=== PATIENT | female | born 1985 | race African-American/Black ===

== ENCOUNTER 2017-02-26 15:21 | Emergency (ER) | payer OTHER ==
[~2017-02-26] VITALS: Ht 152.4 cm; Wt 106.8 kg
[~2017-02-26 15:21] MED LIST: ALBUTEROL0.83 MG/ML IH; AMOXICILLIN 50500 MG PO; CETIRIZINE; CITALOPRAM20 MG PO; DOXYCYCLINE 10100 MG PO; FEROSUL325 MG PO; FLAGYL 250250 MG/TAB PO; FLAGYL500 MG PO; FLEXERIL 1010 MG/TAB PO; LORTAB 5/500 501 TAB PO; MACROBID 1100 MG/CAP PO; MOTRIN 200200 MG/TAB PO; MOTRIN 800800 MG/TAB PO; MYCOLOG-II 10001 CRE TP; NO HOME MEDICATIONS; NORCO 325 MG-51 TAB PO; PEPCID 20MG TAB20 MG PO; PERCOCET 325 MG1 TA2 PO; PHENERGAN 25 TA25 MG PO; PREDNISONE10 MG PO; PRENATAL1 TA1 PO; PYRIDIUM200 M1 PO; TUSS PO; TYLENOL EXTRA500 M1 PO; TYLENOL W/COD1 UDTAB PO; ULTRAM 50MG TAB50 MG PO
[2017-02-26 15:23] VITALS: TEMP 98
[2017-02-26 16:00] LABS: BASO % 0.5 % (0.0-2.0); EOS # 0.1 (0.0-0.7); EOS % 2.5 % (0-4.0); GRAN # 2.8 (1.4-6.5); GRAN % 50.2 % (42.2-75.2); HEMATOCRIT 41.3 % (37.0-47.0); HEMOGLOBIN 13.2 g/dl (12.5-16.0); LYMPH # 2.2 (1.2-3.4); LYMPH % 39.6 % (20.0-51.0); MEAN CELL VOLUME 78 fl (80.0-100.0); MEAN CORPUSCULAR HEMOGLOBIN 25 pg (27.0-31.0); MEAN CORPUSCULAR HGB CONC 32 g/dl (33.0-37.0); MEAN PLATELET VOLUME 8.9 fl (7.4-10.4); MONO # 0.4 (0.1-0.6); PLATELET COUNT 307 K/mm3 (130-400); RED BLOOD COUNT 5.27 M/mm3 (4.10-5.30); REDCELL DISTRIBUTION WIDTH-CV 15.3 % (11.5-14.5); WHITE BLOOD COUNT 5.6 K/mm3 (4.8-10.8)
[2017-02-26 16:14] LABS: ADJUSTED CALCIUM 9.2 mg/dL (8.4-10.2); ALBUMIN 3.9 gm/dL (3.5-5.0); BILIRUBIN,TOTAL 0.6 mg/dL (0.0-1.0); CALCIUM 9.1 mg/dL (8.4-10.2); CREATININE, serum 0.85 mg/dL (0.52-1.25); POTASSIUM 3.6 mmol/L (3.4-5.0)
[2017-02-26 16:55] VITALS: BP 127/82; PULSE 77
== END 2017-02-26 16:57 | disposition home or self-care (01) ==
LOC: COL.ER 15:21
PROVIDERS: Emergency Medicine
DX: M25.562 Pain in left knee (principal)

== ENCOUNTER 2017-06-10 17:35 | Emergency (ER) | payer SELFPAY ==
[~2017-06-10] VITALS: Ht 149.9 cm; Wt 113.6 kg
[2017-06-10 17:40] VITALS: BP 123/77; TEMP 98.3
[2017-06-10 20:38] VITALS: PULSE 80
== END 2017-06-10 20:18 | disposition home or self-care (01) ==
LOC: COL.ER 17:35
DX: J06.9 Acute upper respiratory infection, unspecified (principal)

== ENCOUNTER 2017-07-11 15:03 | Emergency (ER) | payer OTHER ==
[~2017-07-11] VITALS: Ht 152.4 cm; Wt 113.6 kg
[2017-07-11 15:07] VITALS: BP 125/65; TEMP 98.1
[2017-07-11] MEDS ORDERED: PREDNISONE20 MG PO (17:14)
[2017-07-11] MEDS ORDERED: PROAIR HFA0.09 MG/AC IH (17:14)
[2017-07-11 18:40] VITALS: PULSE 94
== END 2017-07-11 18:41 | disposition home or self-care (01) ==
LOC: COL.ER 15:03
DX: J20.9 Acute bronchitis, unspecified (principal)
CPT/HCPCS: J7512

== ENCOUNTER 2018-01-09 20:26 | Emergency (ER) | payer OTHER ==
[~2018-01-09] VITALS: Ht 152.4 cm; Wt 115.5 kg
[~2018-01-09 20:26] MED LIST changes: +PREDNISONE20 MG PO; +PROAIR HFA0.09 MG/AC IH
[2018-01-09 20:30] VITALS: BP 136/62; TEMP 97.5
[2018-01-09] MEDS ORDERED: [UNRECOGNIZED DRUG - OTHER] (20:33)
[2018-01-09] MEDS ORDERED: B-121000 MCG PO (20:34)
[2018-01-09] MEDS ORDERED: AMOXICILLIN875 MG PO (20:59)
[2018-01-09 21:17] VITALS: PULSE 90
== END 2018-01-09 21:22 | disposition home or self-care (01) ==
LOC: COL.ER 20:26
DX: J32.9 Chronic sinusitis, unspecified (principal)

== ENCOUNTER 2018-06-19 07:07 | Emergency (ER) | payer OTHER ==
[~2018-06-19] VITALS: Ht 152.4 cm; Wt 117.3 kg
[~2018-06-19 07:07] MED LIST changes: +AMOXICILLIN875 MG PO; +B-121000 MCG PO; +[UNRECOGNIZED DRUG - OTHER]
[2018-06-19 07:14] VITALS: TEMP 99.1
[2018-06-19] MEDS ORDERED: FLAGYL500 MG PO (07:30)
[2018-06-19] MEDS ORDERED: LEVOXYL0.075 MG PO (07:30)
[2018-06-19 07:36] LABS: COLLECTION METHOD CLEAN CATCH
[2018-06-19 07:50] LABS: MUCOUS Present /lpf; PH 5 (5-8); URINE APPEARANCE Hazy; URINE BACTERIA Rare /hpf; URINE BILIRUBIN Negative (NEGATIVE); URINE BLOOD 3+ (NEGATIVE); URINE COLOR Yellow; URINE GLUCOSE Negative (NEGATIVE); URINE KETONE Negative (NEGATIVE); URINE LEUKOCYTE ESTERASE 2+ (NEGATIVE); URINE NITRATE Negative (NEGATIVE); URINE PROTEIN(semi-quant) 1+ (NEGATIVE); URINE RBC 20-50 /hpf; URINE UROBILINOGEN >=4.0 mg/dL (NEGATIVE)
[2018-06-19] MEDS ORDERED: CEPHALEXIN500 M1 PO (07:54)
[2018-06-19] MEDS ORDERED: PYRIDIUM200 M1 PO (07:54)
[2018-06-19 08:00] VITALS: BP 124/70; PULSE 70
== END 2018-06-19 08:01 | disposition home or self-care (01) ==
LOC: COL.ER 07:07
PROVIDERS: Physician Assistant
DX: N39.0 Urinary tract infection, site not specified (principal); E03.9 Hypothyroidism, unspecified; Z98.51 Tubal ligation status; Z98.890 Other specified postprocedural states

== ENCOUNTER 2018-08-15 07:07 | Emergency (ER) | payer OTHER ==
[~2018-08-15] VITALS: Ht 152.4 cm; Wt 120.5 kg
[~2018-08-15 07:07] MED LIST changes: +CEPHALEXIN500 M1 PO; +LEVOXYL0.075 MG PO
[2018-08-15 07:16] VITALS: BP 121/76
[2018-08-15] MEDS ORDERED: NATURAL IRON65 MG PO (07:25)
[2018-08-15 09:30] VITALS: PULSE 78; TEMP 99.2
== END 2018-08-15 09:30 | disposition home or self-care (01) ==
LOC: COL.ER 07:07
DX: B34.9 Viral infection, unspecified (principal); F32.9 Major depressive disorder, single episode, unspecified; E03.9 Hypothyroidism, unspecified; Z98.51 Tubal ligation status; Z98.890 Other specified postprocedural states; Z87.891 Personal history of nicotine dependence

== ENCOUNTER 2018-08-17 19:20 | Emergency (ER) | payer OTHER ==
[~2018-08-17] VITALS: Ht 152.4 cm; Wt 120.5 kg
[~2018-08-17 19:20] MED LIST changes: +NATURAL IRON65 MG PO
[2018-08-17 19:27] VITALS: BP 100/63; TEMP 98.7
[2018-08-17] MEDS ORDERED: ZITHROMAX Z PA250 MG PO (19:52)
[2018-08-17] MEDS ORDERED: PREDNISONE10 MG PO (19:52)
[2018-08-17 20:10] VITALS: PULSE 86
== END 2018-08-17 20:10 | disposition home or self-care (01) ==
LOC: COL.ER 19:20
DX: J06.9 Acute upper respiratory infection, unspecified (principal); E03.9 Hypothyroidism, unspecified; Z98.51 Tubal ligation status
CPT/HCPCS: J7512

== ENCOUNTER → 2018-09-06 | Outpatient (CLI) | payer OTHER ==
[~2018-09-06] MED LIST changes: +ZITHROMAX Z PA250 MG PO
== END ==
LOC: COL.RAD 09:28
DX: M25.562 Pain in left knee (principal)

== ENCOUNTER 2018-10-30 12:42 | Emergency (ER) | payer OTHER ==
[~2018-10-30] VITALS: Ht 149.9 cm; Wt 120.5 kg
[2018-10-30 12:55] VITALS: BP 137/82; PULSE 68; TEMP 98.6
[2018-10-30 13:22] LABS: COLLECTION METHOD CLEAN CATCH
[2018-10-30] MEDS ORDERED: MOBIC 7.5MG7.5 MG PO (13:26)
[2018-10-30] MEDS ORDERED: LASIX 20MG TABL20 MG PO (13:26)
[2018-10-30 13:36] LABS: PH 7 (5-8); URINE APPEARANCE Clear; URINE BACTERIA None Seen /hpf; URINE BILIRUBIN Negative (NEGATIVE); URINE BLOOD 1+ (NEGATIVE); URINE COLOR Yellow; URINE GLUCOSE Negative (NEGATIVE); URINE KETONE Negative (NEGATIVE); URINE LEUKOCYTE ESTERASE Negative (NEGATIVE); URINE NITRATE Negative (NEGATIVE); URINE PROTEIN(semi-quant) Negative (NEGATIVE); URINE RBC 0-2 /hpf; URINE UROBILINOGEN Negative (NEGATIVE)
[2018-10-30] MEDS ORDERED: MEDROL 4MG DOSPA4 MG PO (13:48)
== END 2018-10-30 13:57 | disposition home or self-care (01) ==
LOC: COL.ER 12:42
PROVIDERS: Family Medicine
DX: M54.16 Radiculopathy, lumbar region (principal)

== ENCOUNTER 2018-11-15 06:38 | Emergency (ER) | payer OTHER ==
[~2018-11-15] VITALS: Ht 149.9 cm; Wt 120.9 kg
[~2018-11-15 06:38] MED LIST changes: +LASIX 20MG TABL20 MG PO; +MEDROL 4MG DOSPA4 MG PO; +MOBIC 7.5MG7.5 MG PO
[2018-11-15 06:45] VITALS: BP 127/78; PULSE 72; TEMP 97.9
[2018-11-15] MEDS ORDERED: SUDAFED 12 HOU120 MG PO (07:27)
== END 2018-11-15 07:41 | disposition home or self-care (01) ==
LOC: COL.ER 06:38
DX: J06.9 Acute upper respiratory infection, unspecified (principal); Z98.51 Tubal ligation status

== ENCOUNTER → 2018-12-10 | Outpatient (CLI) | payer OTHER ==
[~2018-12-10] MED LIST changes: +SUDAFED 12 HOU120 MG PO
== END ==
LOC: COL.RAD 09:21
DX: E03.9 Hypothyroidism, unspecified (principal); E04.2 Nontoxic multinodular goiter

== ENCOUNTER 2019-02-07 12:39 | Emergency (ER) | payer OTHER ==
[~2019-02-07] VITALS: Ht 149.9 cm; Wt 125.5 kg
[2019-02-07 12:42] VITALS: BP 137/96; TEMP 97.6
[2019-02-07 14:04] LABS: COLLECTION METHOD CLEAN CATCH
[2019-02-07 14:13] LABS: MUCOUS Present /lpf; PH 5 (5-8); URINE APPEARANCE Clear; URINE BACTERIA Rare /hpf; URINE BILIRUBIN Negative (NEGATIVE); URINE BLOOD 2+ (NEGATIVE); URINE COLOR Yellow; URINE GLUCOSE Negative (NEGATIVE); URINE KETONE Negative (NEGATIVE); URINE LEUKOCYTE ESTERASE Negative (NEGATIVE); URINE NITRATE Negative (NEGATIVE); URINE PROTEIN(semi-quant) Negative (NEGATIVE); URINE UROBILINOGEN Negative (NEGATIVE)
[2019-02-07 14:33] LABS: BASO % 0.2 % (0.0-2.0); EOS # 0.2 (0.0-0.7); EOS % 3.5 % (0-4.0); GRAN # 3.9 (1.4-6.5); GRAN % 70.8 % (42.2-75.2); HEMATOCRIT 47.5 % (37.0-47.0); HEMOGLOBIN 14.9 g/dl (12.5-16.0); LYMPH # 0.9 (1.2-3.4); LYMPH % 16.4 % (20.0-51.0); MEAN CELL VOLUME 78 fl (80.0-100.0); MEAN CORPUSCULAR HEMOGLOBIN 25 pg (27.0-31.0); MEAN CORPUSCULAR HGB CONC 31 g/dl (33.0-37.0); MONO # 0.5 (0.1-0.6); MONO % 8.7 % (1.7-9.3); PLATELET COUNT 276 K/mm3 (130-400); RED BLOOD COUNT 6.09 M/mm3 (4.10-5.30); REDCELL DISTRIBUTION WIDTH-CV 17.2 % (11.5-14.5)
[2019-02-07 14:51] LABS: ALBUMIN 4.2 gm/dL (3.5-5.0); BILIRUBIN,TOTAL 0.5 mg/dL (0.0-1.0); C-REACTIVE PROTEIN 1.3 mg/dL (0.0-0.9); CALCIUM 8.9 mg/dL (8.4-10.2); CREATININE, serum 0.98 (0.52-1.25); POTASSIUM 3.8 mmol/L (3.4-5.0); TOTAL PROTEIN 8.2 gm/dL (6.4-8.2)
[2019-02-07] MEDS ORDERED: PHENERGAN 25 TA25 MG PO (17:16)
[2019-02-07] MEDS ORDERED: NEXIUM 20MG20 MG PO (17:16)
[2019-02-07 17:39] VITALS: PULSE 88
== END 2019-02-07 17:40 | disposition home or self-care (01) ==
LOC: COL.ER 12:39
PROVIDERS: Family Medicine
DX: R10.13 Epigastric pain (principal)
CPT/HCPCS: C9113; J0780; J1170; J2405; J7030

== ENCOUNTER 2019-03-25 10:09 | Emergency (ER) | payer OTHER ==
[~2019-03-25] VITALS: Ht 149.9 cm; Wt 123.6 kg
[~2019-03-25 10:09] MED LIST changes: +LEVOXYL0.05 MG PO; -LEVOXYL0.075 MG PO; +NEXIUM 20MG20 MG PO
[2019-03-25 10:16] VITALS: BP 133/71; TEMP 98.7
[2019-03-25] MEDS ORDERED: CYMBALTA 60MG60 MG PO (11:06)
[2019-03-25 11:50] VITALS: PULSE 72
== END 2019-03-25 11:50 | disposition home or self-care (01) ==
LOC: COL.ER 10:09
DX: R07.89 Other chest pain (principal); E03.9 Hypothyroidism, unspecified; K27.9 Peptic ulcer, site unspecified, unspecified as acute or chronic, without hemorrhage or perforation; D50.9 Iron deficiency anemia, unspecified; Z98.51 Tubal ligation status

== ENCOUNTER → 2019-04-01 | Outpatient (CLI) | payer OTHER ==
[~2019-04-01] MED LIST changes: +CYMBALTA 60MG60 MG PO
== END ==
LOC: SUN.DIA 14:16
DX: E11.9 Type 2 diabetes mellitus without complications (principal)

== ENCOUNTER 2019-05-22 19:35 | Emergency (ER) | payer OTHER ==
[~2019-05-22] VITALS: Ht 149.9 cm; Wt 120.5 kg
[2019-05-22 19:40] VITALS: TEMP 97.2
[2019-05-22 20:39] LABS: BASO % 0.4 % (0.0-2.0); EOS # 0.2 (0.0-0.7); GRAN # 4.6 (1.4-6.5); GRAN % 61.3 % (42.2-75.2); HEMATOCRIT 43.2 % (37.0-47.0); HEMOGLOBIN 13.9 g/dl (12.5-16.0); LYMPH # 2.2 (1.2-3.4); LYMPH % 29.2 % (20.0-51.0); MEAN CELL VOLUME 76 fl (80.0-100.0); MEAN CORPUSCULAR HEMOGLOBIN 24 pg (27.0-31.0); MEAN CORPUSCULAR HGB CONC 32 g/dl (33.0-37.0); MEAN PLATELET VOLUME 9.4 fl (7.4-10.4); MONO # 0.5 (0.1-0.6); MONO % 6.8 % (1.7-9.3); PLATELET COUNT 326 K/mm3 (130-400); RED BLOOD COUNT 5.69 M/mm3 (4.10-5.30); REDCELL DISTRIBUTION WIDTH-CV 16.6 % (11.5-14.5)
[2019-05-22 20:49] LABS: BILIRUBIN,TOTAL 0.6 mg/dL (0.0-1.0); CALCIUM 9.1 mg/dL (8.4-10.2); CREATININE, serum 0.79 (0.52-1.25); POTASSIUM 3.6 mmol/L (3.4-5.0)
[2019-05-22 21:51] LABS: COLLECTION METHOD CLEAN CATCH
[2019-05-22 22:07] LABS: MUCOUS Present /lpf; PH 5 (5-8); SQUAMOUS EPITHELIAL 0-2 /hpf; URINE APPEARANCE Clear; URINE BACTERIA Rare /hpf; URINE BILIRUBIN Negative (NEGATIVE); URINE BLOOD 2+ (NEGATIVE); URINE COLOR Yellow; URINE GLUCOSE Negative (NEGATIVE); URINE KETONE Trace (NEGATIVE); URINE LEUKOCYTE ESTERASE Negative (NEGATIVE); URINE NITRATE Negative (NEGATIVE); URINE PROTEIN(semi-quant) Negative (NEGATIVE); URINE RBC 0-2 /hpf
[2019-05-22] MEDS ORDERED: FLAGYL500 MG PO (22:38)
[2019-05-22 23:03] VITALS: BP 105/77; PULSE 77
== END 2019-05-22 23:03 | disposition home or self-care (01) ==
LOC: COL.ER 19:35
PROVIDERS: Physician Assistant
DX: N83.201 Unspecified ovarian cyst, right side (principal); N76.0 Acute vaginitis; B96.89 Other specified bacterial agents as the cause of diseases classified elsewhere; E03.9 Hypothyroidism, unspecified; Z87.891 Personal history of nicotine dependence
CPT/HCPCS: J1885; J2270

== ENCOUNTER → 2020-02-17 | Outpatient (CLI) | payer OTHER | LOC: COL.RAD 10:20 → COL.LAB 10:20 → COL.RAD 11:15 | DX: E03.9 Hypothyroidism, unspecified (principal); E04.2 Nontoxic multinodular goiter; M25.562 Pain in left knee; G89.29 Other chronic pain ==

== ENCOUNTER → 2020-05-07 | Outpatient (CLI) | payer OTHER | LOC: COL.RAD 10:26 | DX: G43.909 Migraine, unspecified, not intractable, without status migrainosus (principal); G93.89 Other specified disorders of brain ==

== ENCOUNTER 2020-05-18 22:42 | Emergency (ER) | payer OTHER ==
[~2020-05-18] VITALS: Ht 149.9 cm; Wt 126.8 kg
[2020-05-18 22:49] VITALS: TEMP 97.9
[2020-05-18] MEDS ORDERED: FLEXERIL5 MG PO (22:54)
[2020-05-18] MEDS ORDERED: IMITREX50 MG PO (22:55)
[2020-05-19 02:22] VITALS: BP 104/67; PULSE 62
== END 2020-05-19 03:41 | disposition home or self-care (01) ==
LOC: COL.ER 22:42
DX: G43.909 Migraine, unspecified, not intractable, without status migrainosus (principal); E03.9 Hypothyroidism, unspecified; Z91.040 Latex allergy status; M79.7 Fibromyalgia; Z79.890 Hormone replacement therapy; Z85.841 Personal history of malignant neoplasm of brain; Z80.6 Family history of leukemia; Z80.42 Family history of malignant neoplasm of prostate; Z80.3 Family history of malignant neoplasm of breast
CPT/HCPCS: J1170; J1885; J2270; J2405; J7030

== ENCOUNTER → 2020-08-03 | Outpatient (CLI) | payer OTHER ==
[~2020-08-03] MED LIST changes: +FLEXERIL5 MG PO; +IMITREX50 MG PO
== END ==
LOC: COL.RAD 09:54
DX: R22.0 Localized swelling, mass and lump, head (principal); Z98.890 Other specified postprocedural states

== ENCOUNTER 2020-12-22 15:21 | Emergency (ER) | payer OTHER ==
[~2020-12-22] VITALS: Ht 149.9 cm; Wt 131.8 kg
[2020-12-22 15:40] VITALS: TEMP 97.4
[2020-12-22 18:15] VITALS: BP 111/77; PULSE 63
[2020-12-23 10:45] LABS: COLLECTION METHOD CLEAN CATCH
[2020-12-23 12:09] LABS: PH 5 (5-8); URINE APPEARANCE Hazy; URINE COLOR Yellow; URINE PROTEIN(semi-quant) 1+ (NEGATIVE)
[2020-12-23 12:10] LABS: URINE BILIRUBIN Negative (NEGATIVE); URINE BLOOD 1+ (NEGATIVE); URINE GLUCOSE Negative (NEGATIVE); URINE KETONE Negative (NEGATIVE); URINE LEUKOCYTE ESTERASE Negative (NEGATIVE); URINE NITRATE Negative (NEGATIVE); URINE UROBILINOGEN Negative (NEGATIVE)
[2020-12-23 12:11] LABS: MUCOUS Present /lpf
[2020-12-23 12:12] LABS: ALBUMIN 4.1 gm/dL (3.5-5.0); BILIRUBIN,TOTAL 0.4 mg/dL (0.0-1.0); C-REACTIVE PROTEIN 1.9 mg/dL (0.0-0.9); CALCIUM 8.5 mg/dL (8.4-10.2); CREATININE, serum 0.87 (0.52-1.25); POTASSIUM 3.5 mmol/L (3.4-5.0); TOTAL PROTEIN 7.8 gm/dL (6.4-8.2)
[2020-12-23 12:13] LABS: GRAN % 45.4 % (42.2-75.2); HEMATOCRIT 44.8 % (37.0-47.0); HEMOGLOBIN 13.7 g/dl (12.5-16.0); LYMPH % 43.1 % (20.0-51.0); MEAN CELL VOLUME 75 fl (80.0-100.0); MEAN CORPUSCULAR HEMOGLOBIN 23 pg (27.0-31.0); MEAN CORPUSCULAR HGB CONC 31 g/dl (33.0-37.0); PLATELET COUNT 323 K/mm3 (130-400); RED BLOOD COUNT 5.99 M/mm3 (4.10-5.30); REDCELL DISTRIBUTION WIDTH-CV 18.1 % (11.5-14.5)
[2020-12-23 12:14] LABS: BASO % 0.2 % (0.0-2.0); EOS # 0.1 (0.0-0.7); EOS % 2.5 % (0-4.0); GRAN # 1.8 (1.4-6.5); LYMPH # 1.8 (1.2-3.4); MONO # 0.4 (0.1-0.6); MONO % 8.6 % (1.7-9.3)
[2020-12-24] MEDS ORDERED: ROBAXIN 75750 MG/TAB PO (16:02)
== END 2020-12-22 18:15 | disposition home or self-care (01) ==
LOC: COL.ER 15:21
PROVIDERS: Emergency Medicine
DX: K52.9 Noninfective gastroenteritis and colitis, unspecified (principal); E03.9 Hypothyroidism, unspecified; Z79.890 Hormone replacement therapy
CPT/HCPCS: J2405

== ENCOUNTER → 2021-07-19 | Emergency (ER) | payer SELFPAY ==
[~2021-07-19] VITALS: Ht 149.9 cm; Wt 115.5 kg
[~2021-07-19] MED LIST changes: +ROBAXIN 75750 MG/TAB PO
[2021-07-19 21:35] VITALS: BP 148/77; PULSE 79; TEMP 98
[2021-07-19 22:34] LABS: BASO % 0.2 % (0.0-2.0); EOS # 0.2 (0.0-0.7); EOS % 3.7 % (0-4.0); GRAN # 2.6 (1.4-6.5); GRAN % 43.6 % (42.2-75.2); HEMATOCRIT 41.5 % (37.0-47.0); HEMOGLOBIN 12.9 g/dl (12.5-16.0); LYMPH # 2.7 (1.2-3.4); LYMPH % 45.2 % (20.0-51.0); MEAN CELL VOLUME 73 fl (80.0-100.0); MEAN CORPUSCULAR HEMOGLOBIN 23 pg (27.0-31.0); MEAN CORPUSCULAR HGB CONC 31 g/dl (33.0-37.0); MONO # 0.4 (0.1-0.6); MONO % 7.1 % (1.7-9.3); PLATELET COUNT 406 K/mm3 (130-400); RED BLOOD COUNT 5.66 M/mm3 (4.10-5.30); REDCELL DISTRIBUTION WIDTH-CV 19.6 % (11.5-14.5)
[2021-07-19 22:52] LABS: ALANINE AMINOTRANSFERASE 23 U/L (4-34); ALBUMIN 4.5 gm/dL (3.5-5.0); ALKALINE PHOSPHATASE 94 U/L (50-136); ANION GAP 9 mmol/L (7-16); AST,SGOT 28 U/L (15-37); BILIRUBIN,TOTAL 0.3 mg/dL (0.0-1.0); BLOOD UREA NITROGEN 9 mg/dL (7-17); CALCIUM 9.2 mg/dL (8.4-10.2); CARBON DIOXIDE 26 mmol/L (22-30); CHLORIDE 105 mmol/L (98-107); GLUCOSE 89 mg/dL (74-106); POTASSIUM 3.4 mmol/L (3.4-5.0); SODIUM 140 mmol/L (137-145); TOTAL PROTEIN 8.1 gm/dL (6.4-8.2)
[2021-07-19 23:05] LABS: TROPONIN-I < 0.012 ng/mL (0.000-0.035)
== END ==
LOC: COL.ER 21:03
PROVIDERS: Emergency Medicine
DX: G43.909 Migraine, unspecified, not intractable, without status migrainosus (principal); M79.601 Pain in right arm; E03.9 Hypothyroidism, unspecified; Z20.822 Contact with and (suspected) exposure to COVID-19; Z79.890 Hormone replacement therapy; Z79.899 Other long term (current) drug therapy
CPT/HCPCS: J0780; J1200; J1885; J7030

== ENCOUNTER 2021-10-11 11:00 | Emergency (ER) | payer SELFPAY ==
[~2021-10-11] VITALS: Ht 149.9 cm; Wt 105.5 kg
[2021-10-11 11:26] VITALS: BP 135/60; TEMP 98.1
[2021-10-11 13:28] VITALS: PULSE 80
== END 2021-10-11 13:28 | disposition home or self-care (01) ==
LOC: COL.ER 11:00
DX: R51.9 Headache, unspecified (principal); E03.9 Hypothyroidism, unspecified; Z86.69 Personal history of other diseases of the nervous system and sense organs; Z79.890 Hormone replacement therapy; Z85.841 Personal history of malignant neoplasm of brain
CPT/HCPCS: J1200; J1885; J2765; J7030

== ENCOUNTER 2022-06-11 20:51 | Emergency (ER) | payer BC ==
[~2022-06-11] VITALS: Ht 149.9 cm; Wt 100.0 kg
[2022-06-11 20:54] VITALS: BP 117/88; PULSE 74
[2022-06-11] MEDS ORDERED: FLONASE NASAL S16 GM NS (21:17)
[2022-06-11] MEDS ORDERED: SUDAFED30 MG PO (21:17)
[2022-06-11] MEDS ORDERED: NAPROSYN500 MG PO (21:30)
[2022-06-11 21:49] VITALS: TEMP 98.1
== END 2022-06-11 21:49 | disposition home or self-care (01) ==
LOC: COL.ER 20:51
DX: J06.9 Acute upper respiratory infection, unspecified (principal); J01.90 Acute sinusitis, unspecified; Z91.040 Latex allergy status